=== PATIENT | female | born 1950 | race Caucasian/White ===

== ENCOUNTER 2021-06-22 14:52 | Emergency (ER) | payer OTHER ==
[2021-06-22 15:55] LABS: BASOPHIL 0.8 % (0-2); HGB 15.1 g/dl (12.5-16.0); LYMPHOCYTE 21.8 % (15-48); MCH 27.6 pg (25.0-31.0); MCHC 32.1 g/dL (32.0-36.0); MCV 85.8 fL (78.0-100.0); MONOCYTE 8.8 % (0-12); MPV 10.5 fL (6.0-9.5); NEUTROPHIL 64.6 % (41-80); NRBC 0; PLT 288 K/uL (150-400); RBC 5.48 M/uL (4.20-5.40); RDW 13.1 % (11.5-14.0); WBC 9.2 K/uL (4.0-10.5)
[2021-06-22 16:13] LABS: ALBUMIN 3.5 g/dL (3.4-5.0); BILIRUBIN - TOTAL 0.3 mg/dL (0.2-1.0); BUN/CREAT RATIO (CALC) 16.4 RATIO; CREATININE 0.73 mg/dL (0.51-0.95); GLOBULIN (CALCULATION) 3.4 g/dL; POTASSIUM 4.1 mmol/L (3.5-5.1); TOTAL PROTEIN 6.9 g/dL (6.4-8.2)
[2021-06-22 16:51] LABS: CORONAVIRUS 2019 SARS-COV-2 NEGATIVE (NEGATIVE); INFLUENZA A NAA NEGATIVE (NEGATIVE)
[2021-06-22] MEDS ORDERED: VIBRAMYCIN100 MG PO (17:22)
[2021-06-22] MEDS ORDERED: PREDNISONE 20MG20 MG PO (17:23)
[2021-06-22] MEDS ORDERED: G TUSSIN AC LI118 ML PO (17:25)
[2021-06-22] MEDS ORDERED: SYMBICORT 16010.2 GM INH (17:27)
== END 2021-06-22 17:39 | disposition home or self-care (01) ==
LOC: FER 14:52
PROVIDERS: Internal Medicine
DX: J45.901 Unspecified asthma with (acute) exacerbation (principal); I10 Essential (primary) hypertension; J06.9 Acute upper respiratory infection, unspecified; Z88.6 Allergy status to analgesic agent; Z88.8 Allergy status to other drugs, medicaments and biological substances; Z20.822 Contact with and (suspected) exposure to COVID-19
CPT/HCPCS: 36415; 71045; 80053; 84145; 85025; J2930; U0002